=== PATIENT | male | born 1975 | race Caucasian/White ===

== ENCOUNTER 2017-03-10 22:45 | Observation (INO) | payer SELFPAY ==
[~2017-03-10] VITALS: Ht 180.3 cm; Wt 80.0 kg
[~2017-03-10 22:45] MED LIST: BACT2OIN TOP; BACT800T5 PO; IBUP800T23 PO
[2017-03-10 22:48] VITALS: BP 180/91; PULSE 86; RESP 16; TEMP 98.9; O2SAT 98
--- NOTE | 2017-03-10 23:04 | PD ---
Physical Exam Date Seen by Provider: Mar 10, 2017 Time Seen by Provider: 23:01 Data Data Last Documented VS Vital Signs Date Time Temp Pulse Resp B/P (MAP) Pulse Ox O2 Delivery O2 Flow Rate FiO2 03/10/17 22:48 98.9 86 16 180/91 (120) 98 Orders Orders Electrocardiogram (03/10/17:02) Basic Metabolic Panel (Bmp) (03/10/17 23:02) Ckmb (Isoenzyme) Profile (03/10/17:) Complete Blood Count With Diff (03/10/17:) Magnesium (Mg) (03/10/17:) Prothrombin Time / Inr (Pt) (03/10/17:) Act Partial Throm Time (Ptt) (03/10/17:) Troponin I (03/10/17:) Chest, Single Ap (03/10/17:) Ecg Monitoring (03/10/17 23:02) Bilateral Bp Monitoring (03/10/17:) Iv Access Insert/Monitor (03/10/17:) Oximetry (03/10/17:) Oxygen Administration (03/10/17:02) MDM Supervised Visit with SHIVA: No Narrative Course 41 YO M with complaint of 2/10 CP since 6 am. Right sided CP radiating to the neck and right arm. Onset at rest. Described as a tightness, constant. --SOB, palpitations. Never had this type of pain before. +smoker. Unsure of family hx CA. HX asthma. Vitals reviewed. Patient seen in triage, awaiting priority bed placement. Michelle Martin Mar 10, 2017 23:04
[2017-03-10 23:28] VITALS: BP 145/84; PULSE 85; RESP 18; O2SAT 100
[2017-03-10 23:30] LABS: AUTOMATED NEUTROPHIL # 4.9 TH/MM3 (1.8-7.7); BASOPHIL % 0.5 % (0.0-2.0); EOSINOPHIL # 0.1 TH/MM3 (0-0.4); EOSINOPHIL % 0.7 % (0.0-4.0); HEMATOCRIT 46.5 % (39.0-51.0); HEMO FLAGS DIFF FINAL; LYMPH % 33.5 % (9.0-44.0); LYMPHOCYTE # 2.8 TH/MM3 (1.0-4.8); MEAN CELL VOLUME 92.3 FL (80.0-100.0); MEAN CORPUSCULAR HEMOGLOBIN 30.9 PG (27.0-34.0); MEAN CORPUSCULAR HGB CONC 33.5 % (32.0-36.0); MONO % 6.8 % (0.0-8.0); NEUT % 58.5 % (16.0-70.0); PLATELET COUNT 110 TH/MM3 (150-450); RED BLOOD COUNT 5.04 MIL/MM3 (4.50-5.90); RED CELL DISTRIBUTION WIDTH 13.4 % (11.6-17.2); WHITE BLOOD COUNT 8.4 TH/MM3 (4.0-11.0)
--- NOTE | 2017-03-10 23:37 | RADRPT ---
EXAM DATE/TIME: 03/10/2017 23:23 [facility] COMPARISON: No previous studies available for comparison. INDICATIONS : Chest pain. MEDICAL HISTORY : None. SURGICAL HISTORY : None. ENCOUNTER: Initial ACUITY: 1 day PAIN SCORE: 0/10 LOCATION: Bilateral chest FINDINGS: PA and lateral views of the chest demonstrate the lungs to be symmetrically aerated without evidence of mass, infiltrate or effusion. The cardiomediastinal contours are unremarkable. Osseous structure s are intact. CONCLUSION: No acute disease. Young Poe MD on March 10, 2017 at 23:35 Board Certified Radiologist. This report was verified electronically.
[2017-03-10 23:38] LABS: APTT (PATIENT) 25.6 SEC (24.3-30.1); PROTHROMBIN TIME - PATIENT 11.2 SEC (9.8-11.6)
[2017-03-10 23:43] LABS: ANION GAP 8 MEQ/L (5-15); BICARBONATE 29.5 MEQ/L (21.0-32.0); BLOOD UREA NITROGEN 8 MG/DL (7-18); CHLORIDE 105 MEQ/L (98-107); GLOMERULAR FILTRATION RATE 85 ML/MIN (>89); MAGNESIUM 2.2 MG/DL (1.5-2.5); POTASSIUM 3.4 MEQ/L (3.5-5.1); SODIUM (NA) 142 MEQ/L (136-145)
[2017-03-10 23:46] LABS: CREATINE KINASE 386 U/L (39-308)
--- NOTE | 2017-03-10 23:58 | PD ---
HPI Chief Complaint: Chest Pain Time Seen by Provider: 23:25 Travel History International Travel<30 days: No Contact w/Intl Traveler<30days: No Traveled to known affect area: No History of Present Illness HPI Patient is a 41-year-old male who presents to emergency with complaints of chest pain. Patient reports that he has been having intermittent chest pain for the past 2 days. Patient reports that he began to have chest pain yesterday while at work, reports the chest was initially located to his right chest, which that it then spread across his chest and down his right arm. Patient reports that symptoms have been intermittent in nature, rates that sometimes last for a few minutes and sometimes it lasts for hours. Patient reports that he has chest pain worse with exertion, reports that chest pain improves with rest. Patient denies history of coronary disease, NV, hypertension, hyperlipidemia, he does not follow-up with primary care doctor and reports that he is not on any medications because of this. Patient is a smoker, reports only history of asthma. Patient with no chest pain at this time. PFSH Past Medical History Asthma: Yes Diminished Hearing: No Tetanus Vaccination: < 5 Years Past Surgical History Surgical History: No Previous Surgery Social History Alcohol Use: Yes (occ) Tobacco Use: Yes (1ppd) Substance Use: No Allergies-Medications (Allergen,Severity, Reaction): Coded Allergies: No Known Allergies (Unverified , 03/10/16) Reported Meds & Prescriptions Reported Meds & Active Scripts Active Review of Systems General / Constitutional: No: Fever Eyes: No: Visual changes HENT: No: Headaches Cardiovascular: Positive: Chest Pain or Discomfort, Dyspnea on exertion, No: Diaphoresis Respiratory: No: Cough, Shortness of Breath Gastrointestinal: No: Abdominal Pain Genitourinary: No: Dysuria Musculoskeletal: No: Pain Skin: No Rash Neurologic: No: Weakness Psychiatric: No: Depression Endocrine: No: Polydipsia Hematologic/Lymphatic: No: Easy Bruising Physical Exam Narrative GENERAL: Mild distress SKIN: Focused skin assessment warm/dry. HEAD: Atraumatic. Normocephalic. EYES: Pupils equal and round. No scleral icterus. No injection or drainage. ENT: No nasal bleeding or discharge. Mucous membranes pink and moist. NECK: Trachea midline. No JVD. CARDIOVASCULAR: Regular rate and rhythm. No murmur appreciated. RESPIRATORY: No accessory muscle use. Clear to auscultation. Breath sounds equal bilaterally. GASTROINTESTINAL: Abdomen soft, non-tender, nondistended. Hepatic and splenic margins not palpable. MUSCULOSKELETAL: No obvious deformities. No clubbing. No cyanosis. No edema. NEUROLOGICAL: Awake and alert. No obvious cranial nerve deficits. Motor grossly within normal limits. Normal speech. PSYCHIATRIC: Appropriate mood and affect; insight and judgment normal. Data Data Last Documented VS Vital Signs Date Time Temp Pulse Resp B/P (MAP) Pulse Ox O2 Delivery O2 Flow Rate FiO2 03/11/17 00:43 84 16 144/77 (99) 100 Room Air 03/10/17 22:48 98.9 Orders Orders Electrocardiogram (03/10/17 23:02) Basic Metabolic Panel (Bmp) (03/10/17 23:02) Ckmb (Isoenzyme) Profile (03/10/17 23:02) Complete Blood Count With Diff (03/10/17 23:02) Magnesium (Mg) (03/10/17 23:02) Prothrombin Time / Inr (Pt) (03/10/17 23:02) Act Partial Throm Time (Ptt) (03/10/17 23:02) Troponin I (03/10/17 23:02) Ecg Monitoring (03/10/17 23:02) Bilateral Bp Monitoring (03/10/17 23:02) Iv Access Insert/Monitor (03/10/17:02) Oximetry (03/10/17 23:02) Oxygen Administration (03/10/17 23:02) Chest, Pa & Lat (03/10/17 23:02) CKMB (03/10/17 23:00) CKMB% (03/10/17 23:00) Electrocardiogram (03/10/17 23:54) Aspirin Chew (Aspirin Chew) (03/11/17 00:00) Nitroglycerin Sl (Nitrostat Sl) (03/11/17 00:00) Potassium Chloride (Kcl) (03/11/17 00:15) Sodium Chlor 0.9% 1000 Ml Inj (Ns 1000 M (03/11/17 00:15) Admit Order (Ed Use Only) (03/11/17 00:44) Labs Laboratory Tests Test 03/10/17 23:00 White Blood Count 8.4 TH/MM3 Red Blood Count 5.04 MIL/MM3 Hemoglobin 15.6 GM/DL Hematocrit 46.5 % Mean Corpuscular Volume 92.3 FL Mean Corpuscular Hemoglobin 30.9 PG Mean Corpuscular Hemoglobin Concent 33.5 % Red Cell Distribution Width 13.4 % Platelet Count 110 TH/MM3 Mean Platelet Volume 11.4 FL Neutrophils (%) (Auto) 58.5 % Lymphocytes (%) (Auto) 33.5 % Monocytes (%) (Auto) 6.8 % Eosinophils (%) (Auto) 0.7 % Basophils (%) (Auto) 0.5 % Neutrophils # (Auto) 4.9 TH/MM3 Lymphocytes # (Auto) 2.8 TH/MM3 Monocytes # (Auto) 0.6 TH/MM3 Eosinophils # (Auto) 0.1 TH/MM3 Basophils # (Auto) 0.0 TH/MM3 CBC Comment DIFF FINAL Differential Comment Prothrombin Time 11.2 SEC Prothromb Time International Ratio 1.0 RATIO Activated Partial Thromboplast Time 25.6 SEC Blood Urea Nitrogen 8 MG/DL Creatinine 0.97 MG/DL Random Glucose 125 MG/DL Calcium Level 8.8 MG/DL Magnesium Level 2.2 MG/DL Sodium Level 142 MEQ/L Potassium Level 3.4 MEQ/L Chloride Level 105 MEQ/L Carbon Dioxide Level 29.5 MEQ/L Anion Gap 8 MEQ/L Estimat Glomerular Filtration Rate 85 ML/MIN Total Creatine Kinase 386 U/L Creatine Kinase MB 1.9 NG/ML Creatine Kinase MB % 0.5 % Troponin I LESS THAN 0.02 NG/ML MDM Medical Decision Making Medical Screen Exam Complete: Yes Emergency Medical Condition: Yes Interpretation(s) EKG at 2259: NSR at 87BPM, qt/qtc: 351/396, non specific t wave changes Vital Signs Date Time Temp Pulse Resp B/P (MAP) Pulse Ox O2 Delivery O2 Flow Rate FiO2 03/10/17 23:28 85 Room Air 03/10/17 23:28 85 18 145/84 (104) 100 Room Air 03/10/17 22:48 98.9 86 16 180/91 (120) 98 Differential Diagnosis Differential includes ACS, arrhythmia, electrolyte abnormality, PE, pneumothorax Narrative Course Patient is a 41-year-old male who presents to emergency room with complaints of chest pain. Chest pain has been intermittent for the past 2 days, reports that pain was initially located to right chest, reports that now it radiates to his left chest. Patient was placed on a monitor tech upon arrival to the emergency room. Lab work include cardiac enzymes ordered. Will monitor on the monitor tech. 1157PM: Patient now complaining of chest pain, will repeat EKG and administer sublingual nitroglycerin. Vital Signs Date Time Temp Pulse Resp B/P (MAP) Pulse Ox O2 Delivery O2 Flow Rate FiO2 03/11/17 00:43 84 16 144/77 (99) 100 Room Air 03/10/17 23:28 85 Room Air 03/10/17 23:28 85 18 145/84 (104) 100 Room Air 03/10/17 22:48 98.9 86 16 180/91 (120) 98 Laboratory Tests Test 03/10/17 23:00 White Blood Count 8.4 TH/MM3 (4.0-11.0) Red Blood Count 5.04 MIL/MM3 (4.50-5.90) Hemoglobin 15.6 GM/DL (13.0-17.0) Hematocrit 46.5 % (39.0-51.0) Mean Corpuscular Volume 92.3 FL (80.0-100.0) Mean Corpuscular Hemoglobin 30.9 PG (27.0-34.0) Mean Corpuscular Hemoglobin Concent 33.5 % (32.0-36.0) Red Cell Distribution Width 13.4 % (11.6-17.2) Platelet Count 110 TH/MM3 (150-450) Mean Platelet Volume 11.4 FL (7.0-11.0) Neutrophils (%) (Auto) 58.5 % (16.0-70.0) Lymphocytes (%) (Auto) 33.5 % (9.0-44.0) Monocytes (%) (Auto) 6.8 % (0.0-8.0) Eosinophils (%) (Auto) 0.7 % (0.0-4.0) Basophils (%) (Auto) 0.5 % (0.0-2.0) Neutrophils # (Auto) 4.9 TH/MM3 (1.8-7.7) Lymphocytes # (Auto) 2.8 TH/MM3 (1.0-4.8) Monocytes # (Auto) 0.6 TH/MM3 (0-0.9) Eosinophils # (Auto) 0.1 TH/MM3 (0-0.4) Basophils # (Auto) 0.0 TH/MM3 (0-0.2) CBC Comment DIFF FINAL Differential Comment Prothrombin Time 11.2 SEC (9.8-11.6) Prothromb Time International Ratio 1.0 RATIO Activated Partial Thromboplast Time 25.6 SEC (24.3-30.1) Blood Urea Nitrogen 8 MG/DL (7-18) Creatinine 0.97 MG/DL (0.60-1.30) Random Glucose 125 MG/DL (74-106) Calcium Level 8.8 MG/DL (8.5-10.1) Magnesium Level 2.2 MG/DL (1.5-2.5) Sodium Level 142 MEQ/L (136-145) Potassium Level 3.4 MEQ/L (3.5-5.1) Chloride Level 105 MEQ/L (98-107) Carbon Dioxide Level 29.5 MEQ/L (21.0-32.0) Anion Gap 8 MEQ/L (5-15) Estimat Glomerular Filtration Rate 85 ML/MIN (>89) Total Creatine Kinase 386 U/L (39-308) Creatine Kinase MB 1.9 NG/ML (0.5-3.6) Creatine Kinase MB % 0.5 % (0.0-4.0) Troponin I LESS THAN 0.02 NG/ML Patient chest pain free after 2 SL nitro, plan to obs in chest pain unit Diagnosis Primary Impression: Chest pain Qualified Codes: R07.9 - Chest pain, unspecified Admitting Information Admitting Physician Requests: Observation Tyra Tran DO Mar 10, 2017 23:57
[2017-03-10 23:59] LABS: CKMB 1.9 NG/ML (0.5-3.6)
[2017-03-11] VITALS (8 sets, daily range): BP systolic 120–144; BP diastolic 70–85; PULSE 67–84; RESP 16–20; TEMP 97.6–98; O2SAT 95–100
[2017-03-11] MEDS ORDERED: ASPIRIN 81 MG CHEW TAB PO ONE
[2017-03-11] MEDS ORDERED: POTASSIUM CHLORIDE 10 MEQ CONTROLLED RELEASE TAB PO ONE (00:15)
[2017-03-11] MEDS ORDERED: SODIUM CHLOR 0.9% 1000 ML INJ 1,000 ML IV ONE (00:15)
[2017-03-11] MEDS: NITROGLYCERIN 0.4 MG SL 25 TABS/BTL SL SCH ×3 (00:34→00:40)
[2017-03-11 03:06] LABS: CREATINE KINASE 293 U/L (39-308)
[2017-03-11 03:19] LABS: CKMB 1.5 NG/ML (0.5-3.6)
[2017-03-11 05:36] LABS: CREATINE KINASE 266 U/L (39-308)
[2017-03-11 05:49] LABS: CKMB 1.6 NG/ML (0.5-3.6)
--- NOTE | 2017-03-11 08:23 | HHI.HP ---
HPI Primary Care Physician No Primary Care Physician Chief Complaint Chest pain History of Present Illness 41 year male present to ER for further evaluation of chest pain. Onset 2 days ago. Location varies states "pain location and type of pain changes." Sometimes pain occurs in center of chest, right anterior chest, and left anterior chest. Characterized as either sharp and sometimes dull. Duration of discomfort vary from seconds to hours. Nonexertional. With right anterior chest pain reports occasional radiation to right arm. Describing right arm discomfort as numbness and tingling. No associated symptoms of nausea, vomiting, diaphorases, or dyspnea. No known precipitating or relieving factors. Denies similar pain in the past. Current smoking with history of asthma. Review of Systems General: No fatigue,weakness, fever, chills, recent illness, or change in appetite. Has been in his general state of health. Has been off work for 2 months, recently returning to work on Thursday. Works in construction. HEENT: No [place]OO[place], no nasal congestion or drainage CV: As stated above. No current chest pain or pressure. No palpitations, intermittent leg pain, or dizziness. RESP: No SOB, wheeze, hemoptysis, sputum production, or recent URI. History of asthma, continues to smoke. Reports "smokers cough." GI: No nausea, vomiting, bowel changes, diarrhea, constipation, melena, or blood in the stool. No unintentional weight gain or weight loss. : No dysuria EXT: No lower leg edema, no paraesthesias MS: No discomfort or change in ROM NEURO: No difficulty with balance, LOC, motor/sensory deficits PSYCH: No anxiety or depression. Current situation stress past two months SKIN: No rashes, no concerning lesions Past Family Social History Allergies: Coded Allergies: No Known Allergies (Unverified , 03/10/16) Past Medical History Asthma Past Surgical History None Reported Medications Active None Family History Noncontributory for early onset cardiovascular disease. Social History No known hypertension, diabetes, or hyperlipidemia. Has not seen a primary care provider in years, reporting he currently is in the process of looking for PCP. Smokes 1 pack/daily most of adult life. Occasional alcohol use. Denies any illegal drug use. Active, works construction. Past Cardiac Testing None Physical Exam Vital Signs Vital Signs Date Time Temp Pulse Resp B/P (MAP) Pulse Ox O2 Delivery O2 Flow Rate FiO2 03/11/17 08:07 97.7 76 16 120/81 (94) 97 03/11/17 08:05 21 03/11/17 05:36 97.6 67 20 122/70 (87) 95 03/11/17 04:00 72 03/11/17 02:40 98.0 76 20 133/83 (100) 96 03/11/17 02:15 03/11/17 01:38 98 21 03/11/17 00:43 84 16 144/77 (99) 100 Room Air 03/10/17 23:28 85 Room Air 03/10/17 23:28 85 18 145/84 (104) 100 Room Air 03/10/17 22:48 98.9 86 16 180/91 (120) 98 Physical Exam GENERAL: Alert WN, WD, NAD, pleasant, male who appears older than stated age HEAD: NC, AT EYES: Sclera clear, conjunctiva without injection, pupils equal and round ENT: Mucous membranes pink and moist NECK: Supple, no masses, trachea midline CV: RRR, without murmur, rub, gallop, no JVD, S1-S2 no S3-S4. No carotid bruits. Chest wall tenderness not reproducible with palpation. RESP: Expiratory wheezes throughout bilateral and diminished. No crackles. Symmetrical chest rise, nonlabored, able to speak in full sentences ABD: Soft, NT, ND, no masses, positive bowel tones BACK: No CVAT EXT: Pulses +24, no dependent edema MS: Normal tone 4 extremities, nontender, no obvious deformities, full range of motion NEURO: CN II through CN XII grossly intact, motor strength 5/5, gait WNL PSYCH: A+O 3, pleasant affect, appropriate speech, appropriate mood and affect , insight and judgment SKIN: Normal turgor, normal texture, no lesions, no rashes, brisk cap refill, even hair distribution Laboratory Laboratory Tests Test 03/10/17 23:00 03/11/17 02:15 03/11/17 04:50 White Blood Count 8.4 Red Blood Count 5.04 Hemoglobin 15.6 Hematocrit 46.5 Mean Corpuscular Volume 92.3 Mean Corpuscular Hemoglobin 30.9 Mean Corpuscular Hemoglobin Concent 33.5 Red Cell Distribution Width 13.4 Platelet Count 110 Mean Platelet Volume 11.4 Neutrophils (%) (Auto) 58.5 Lymphocytes (%) (Auto) 33.5 Monocytes (%) (Auto) 6.8 Eosinophils (%) (Auto) 0.7 Basophils (%) (Auto) 0.5 Neutrophils # (Auto) 4.9 Lymphocytes # (Auto) 2.8 Monocytes # (Auto) 0.6 Eosinophils # (Auto) 0.1 Basophils # (Auto) 0.0 CBC Comment DIFF FINAL Differential Comment Prothrombin Time 11.2 Prothromb Time International Ratio 1.0 Activated Partial Thromboplast Time 25.6 Blood Urea Nitrogen 8 Creatinine 0.97 Random Glucose 125 Calcium Level 8.8 Magnesium Level 2.2 Sodium Level 142 Potassium Level 3.4 Chloride Level 105 Carbon Dioxide Level 29.5 Anion Gap 8 Estimat Glomerular Filtration Rate 85 Total Creatine Kinase 386 293 266 Creatine Kinase MB 1.9 1.5 1.6 Creatine Kinase MB % 0.5 Troponin I LESS THAN 0.02 LESS THAN 0.02 LESS THAN 0.02 Result Diagram: 03/10/17229903/10/172299 Imaging Last Impressions Chest X-Ray 03/10/172301 Signed Impressions: Service Date/Time: Friday, March 10, 2017 23:23 - CONCLUSION: No acute disease. Young Poe MD Course EKG NSR, nonspecific t wave changes Caprini VTE Risk Assessment Caprini VTE Risk Assessment: No/Low Risk (score <= 1) Caprini Risk Assessment Model Point Value = 1 Point Value = 2 Point Value = 3 Point Value = 5 Age 41-60 Minor surgery BMI > 25 kg/m2 Swollen legs Varicose veins or History of unexplained or recurrent spontaneous Oral contraceptives or hormone replacement Sepsis (< 1 month) Serious lung disease, including pneumonia (< 1 month) Abnormal pulmonary function Acute myocardial infarction Congestive heart failure (< 1 month) History of inflammatory bowel disease Medical patient at bed rest Age 61-74 Arthroscopic surgery Major open surgery (> 45 min) Laparoscopic surgery (> 45 min) Malignancy Confined to bed (> 72 hours) Immobilizing plaster cast Central venous access Age >= 75 History of VTE Family history of VTE Factor V Leiden Prothrombin [id number] Lupus anticoagulant Anticardiolipin antibodies Elevated serum homocysteine Heparin-induced thrombocytopenia Other congenital or acquired thrombophilia Stroke (< 1 month) Elective arthroplasty Hip, pelvis, or leg fracture Acute spinal cord injury (< 1 month) Prophylaxis Regimen Total Risk Factor Score Risk Level Prophylaxis Regimen 0-1 Low Early ambulation 2 Moderate Order ONE of the following: *Sequential Compression Device (SCD) *Heparin 5000 units SQ BID 3-4 Higher Order ONE of the following medications: *Heparin 5000 units SQ TID *Enoxaparin/Lovenox 40 mg SQ daily (WT < 150 kg, CrCl > 30 mL/min) *Enoxaparin/Lovenox 30 mg SQ daily (WT < 150 kg, CrCl > 10-29 mL/min) *Enoxaparin/Lovenox 30 mg SQ BID (WT < 150 kg, CrCl > 30 mL/min) AND/OR *Sequential Compression Device (SCD) 5 or more Highest Order ONE of the following medications: *Heparin 5000 units SQ TID (Preferred with Epidurals) *Enoxaparin/Lovenox 40 mg SQ daily (WT < 150 kg, CrCl > 30 mL/min) *Enoxaparin/Lovenox 30 mg SQ daily (WT < 150 kg, CrCl > 10-29 mL/min) *Enoxaparin/Lovenox 30 mg SQ BID (WT < 150 kg, CrCl > 30 mL/min) AND *Sequential Compression Device (SCD) Assessment and Plan Assessment and Plan #1 Atypical chest pain-admitted to chest pain center. Ruled out with 3 sets of EKGs and cardiac enzymes. Seen and evaluation by Dr. Antonella Sanchez. Completed exercise treadmill test with no signs of ischemia. Discharge this afternoon. #2 Hypertension-encouraged lifestyle modifications, education provided including following low sodium diet, smoking cessation, and increasing daily activity. Establish with a PCP, notifying PCP of lifestyle modifications attempted. #3 Tobacco use-strongly encouraged and stressed importance of smoking cessation in length. Instructed to quit smoking. Informed he most likely has COPD and needs to to establish with a PCP and/or supervisor plate pasting to assess further and needs to stop smoking. Elizabeth Mack Mar 11, 2017 08:23
[2017-03-11] MEDS ORDERED: ONDANSETRON HCL 4 MG/2 ML VIAL IV PRN (08:30)
[2017-03-11] MEDS ORDERED: RESP: ALBUTEROL 2.5 MG/3 ML NEB (PRN) NEB (08:30)
[2017-03-11] MEDS ORDERED: RESP: ALBUTEROL 2.5 MG/IPRATROPIUM 0.5 MG NEB (SCH) NEB ONE (08:30)
[2017-03-11] MEDS ORDERED: ACETAMINOPHEN 500 MG CPLT PO PRN (08:30)
[2017-03-11] MEDS ORDERED: NITROGLYCERIN 0.4 MG SL 25 TABS/BTL SL PRN (08:30)
[2017-03-11] MEDS ORDERED: ASPIRIN 325 MG TAB PO SCH (09:00)
[2017-03-11] MEDS ORDERED: SODIUM CHLORIDE 0.9% FLUSH 10 ML FLUSH IV FLUSH SCH (09:00)
--- NOTE | 2017-03-11 11:30 | HHI.DCPOC ---
Discharge Care Plan Diagnosis: (1) Atypical chest pain (2) Tobacco abuse Goals to Promote Your Health * To prevent worsening of your condition and complications * To maintain your health at the optimal level Directions to Meet Your Goals Take your medications as prescribed Follow your dietary instruction Follow activity as directed Keep your appointments as scheduled Take your immunizations and boosters as scheduled If your symptoms worsen call your PCP, if no PCP go to Urgent Care Center or Emergency Room Smoking is Dangerous to Your Health. Avoid second hand smoke Call the 24-hour hour crisis hotline for domestic abuse at Elizabeth Mack Mar 11, 2017 11:30
--- NOTE | 2017-03-11 17:46 | TR ---
Date Performed: 03/11/2017 Time Performed: 10:42:17 DOCTOR: Antonella Sanchez DRUG LIST: CLINICAL HISTORY: CHEST PAIN REASON FOR TEST: Chest pain REASON FOR ENDING: OBSERVATION: CONCLUSION: Kevin protocol completed. Stopped sec to exceeding target heart rate and leg fatigue . Maximum VM=627 Target HR Achieved=89.0% Maximum OB=162/86 Total Exercise Time=9:29. No reprod chest pain/discomfort. Stage [address] segment change to sugg ischemia. Nonspecific t wave change s prior to exam improved with exercise. Good exercise tolerance. Normal bp response. Recovery quick a nd unremarkable. COMMENTS:
--- NOTE | 2017-03-11 17:47 | EKG ---
Date Performed: 03/11/2017 Time Performed: 05:15:48 PTAGE: 41 years EKG: Sinus rhythm NORMAL ECG Since PREVIOUS TRACING , no significant change noted PREVIOUS TRACIN03/11/2017 02.19 DOCTOR: Antonella Sanchez Interpretating Date/Time 03/11/2017 17:45:57
--- NOTE | 2017-03-11 17:48 | EKG ---
Date Performed: 03/11/2017 Time Performed: 02:19:36 PTAGE: 41 years EKG: Sinus rhythm NORMAL ECG Since PREVIOUS TRACING , no significant change noted PREVIOUS TRACIN03/11/2017 00.30 DOCTOR: Antonella Sanchez Interpretating Date/Time 03/11/2017 17:46:30
--- NOTE | 2017-03-11 17:49 | EKG ---
Date Performed: 03/10/2017 Time Performed: 22:59:06 PTAGE: 41 years EKG: Sinus rhythm NONSPECIFIC T-WAVE ABNORMALITY BORDERLINE ECG NO PREVIOUS TRACING DOCTOR: Antonella Sanchez Interpretating Date/Time 03/11/2017 17:47:57
--- NOTE | 2017-03-11 17:49 | EKG ---
Date Performed: 03/11/2017 Time Performed: 00:30:27 PTAGE: 41 years EKG: Sinus rhythm NONSPECIFIC T-WAVE ABNORMALITY BORDERLINE ECG Since previous tracing, no significant change noted NO PREVIOUS TRACING DOCTOR: Antonella Sanchez Interpretating Date/Time 03/11/2017 17:47:19
== END 2017-03-11 12:38 | disposition home or self-care (01) ==
LOC: NEPC 22:45 → NEDA 03-11 00:46 → NEPFCDU 03-11 02:29
PROVIDERS: ADMIT Internal Medicine Interventional Cardiology; ATTEND Internal Medicine Interventional Cardiology
DX: R07.89 Other chest pain (principal); R94.31 Abnormal electrocardiogram [ECG] [EKG]; I10 Essential (primary) hypertension; F17.210 Nicotine dependence, cigarettes, uncomplicated
CPT/HCPCS: 71020; 80048; 82550; 82552; 83735; 84484; 85025; 85610; 85730; 93005; 93017; 94664; 96360; 99285; G0378; J7030